=== PATIENT | male | born 1985 | race Caucasian/White ===

== ENCOUNTER 2019-02-01 22:32 | Emergency (ER) | payer BC ==
[~2019-02-01] VITALS: Ht 175.3 cm; Wt 118.2 kg
[2019-02-01 22:39] VITALS: Ht 175.3 cm; Wt 118.2 kg
[2019-02-02] MEDS ORDERED: KEFLEX500 MG PO (00:15)
[2019-02-02] MEDS ORDERED: HYDROCODON-ACE1 EAC7 PO (00:15)
[2019-02-02 00:30] VITALS: BP 123/84
== END 2019-02-02 00:30 | disposition home or self-care (01) ==
LOC: D.ER 22:32
DX: S61.240A Puncture wound with foreign body of right index finger without damage to nail, initial encounter (principal); X58.XXXA Exposure to other specified factors, initial encounter; Y93.89 Activity, other specified; Y92.89 Other specified places as the place of occurrence of the external cause